=== PATIENT | male | born 1990 | race Hispanic/Latino ===

== ENCOUNTER 2020-12-17 14:09 | Outpatient (CLI) | payer BC | END 2020-12-17 14:10 | disposition home or self-care (01) | LOC: CSHMRI 14:09 | PROVIDERS: ATTEND Orthopaedic Surgery | DX: S83.104A Unspecified dislocation of right knee, initial encounter (principal); S83.281A Other tear of lateral meniscus, current injury, right knee, initial encounter; M23.51 Chronic instability of knee, right knee ==